=== PATIENT | female | born 1990 | race Two or more races ===

== ENCOUNTER 2020-03-30 12:17 | Emergency (ER) | payer MEDICAID ==
[~2020-03-30] VITALS: Ht 167.6 cm; Wt 81.6 kg
[2020-03-30] MEDS ORDERED: ACTIVATED CHARCOAL 25 GM/120 ML TUBE PO ONE (12:30)
--- NOTE | 2020-03-30 12:30 | NUR ---
CALLED POISON CONTROL. STATED TO DO THE FOLLOWING: "IF ABLE TO SWOLLOW GIVE 50 GRAMS OF CHARCOAL" 12 LEAD EKG IF EKG QRS GREATER THAN 120 GIVE BICARB BOLUS IF EKG QTC GREATER THAN 500 GIVE IV MAGNESEUM 1-2 GRAMS PERFORM LABS OF SERUM, MAGNESEUM, POTASSIAM, CALCIUM AND MAKE SURE THEY ARE ABOVE NORMAL RANGE. IV FLUIDS BENZODIAZEPAM FOR BEHAVIORAL. CHECK TYLENOL/ASPIRIN LEVELS AND RECHECK AFTER 4 HOURS. EKG AFTER 4 HOURS. LABS AFTER 4 HOURS.
[2020-03-30] MEDS ORDERED: CHARCOAL/SORBITOL SOLUTION 25 G/120 ML TUBE ONE (12:39)
--- NOTE | 2020-03-30 12:52 | NUR ---
[employer] AT BEDSIDE
--- NOTE | 2020-03-30 13:13 | NUR ---
pt rec'd to er via ems pt crying was found outside a hotel took white pills.stated wanted to kill herself but not now wants to live . boyfriend number [email or web address]
--- NOTE | 2020-03-30 13:18 | NUR ---
ekg done ua sent to lab labs drawn sent to lab. pt given charcoal
[2020-03-30 13:33] LABS: BILIRUBIN,URINE Negative (NEGATIVE); COLOR,URINE YELLOW (YELLOW); LEUKOCYTE ESTERASE ,URINE Moderate (NEGATIVE); NITRITE, URINE Positive (NEGATIVE); PROTEIN,URINE 30 mg/dl (NEGATIVE); UGLUCOSE Negative (NEGATIVE); UROBILINOGEN,URINE 0.2 EU/dL (0.2)
[2020-03-30 13:40] LABS: BACTERIA,URINE 3+ /HPF (None Seen); SQUAMOUS EPITHELIAL CELL,UR Few /HPF (None Seen); WBC,URINE 21-50 /HPF (0-3)
--- NOTE | 2020-03-30 13:56 | NUR ---
MARK [phone]
[2020-03-30 14:08] LABS: BASOPHILS # (AUTO) 0.2 /CMM (0.0-0.2); BASOPHILS % (AUTO) 1.9 % (0.0-2.0); HEMATOCRIT 39 % (33-45); HEMOGLOBIN 12.8 g/dL (11.5-14.8); LYMPHOCYTES # (AUTO) 0.4 /CMM (0.8-4.8); LYMPHOCYTES % (AUTO) 3.2 % (20.0-44.0); MEAN CORPUSCULAR HGB CONC 33 g/dl (31.0-36.0); MEAN CORPUSCULAR VOLUME 89 fL (82-100); MONOCYTES # (AUTO) 0.4 /CMM (0.1-1.30); MONOCYTES % (AUTO) 3.4 % (2.0-12.0); NEUTROPHILS # (AUTO) 10.8 /CMM (1.8-8.9); NEUTROPHILS % (AUTO) 90.5 % (43.0-81.0); PLATELET COUNT (AUTO) 350 /CMM (150-450); RED BLOOD CELL COUNT(AUTO) 4.35 MIL/uL (4.0-5.2)
[2020-03-30] MEDS ORDERED: IV NS 0.9% 1,000 ML IV ONE (16:00)
[2020-03-30] MEDS ORDERED: CEPHALEXIN MONOHYDRATE 500 MG CAPSULE PO ONE (16:35)
--- NOTE | 2020-03-30 16:53 | NUR ---
PATIENT WOULD LIKE TO SPEAK WITH BOYFRIEND. TRIED TO CONTACT MARK TO SPEAK TO HER. NO ANSWER. LEFT .
[2020-03-30] MEDS ORDERED: CEPHALEXIN MONOHYDRATE 500 MG CAPSULE PO SCH (17:00)
[2020-03-30] MEDS ORDERED: OLANZAPINE 10 MG VIAL IM ONE ×2 (17:13→17:30)
--- NOTE | 2020-03-30 17:14 | NUR ---
PATIENT GETS OUT OF BED AND GETS AGGRESSIVE TOWARDS STAFF. CODE MUSA ACTIVATED.
[2020-03-30] MEDS ORDERED: LORAZEPAM INJ 2 MG/ML VIAL ONE (17:21)
[2020-03-30] MEDS ORDERED: diphenhydrAMINE HCL 50 MG/ML VIAL IV ONE (17:30)
[2020-03-30] MEDS ORDERED: LORAZEPAM INJ 2 MG/ML VIAL IV ONE (17:30)
--- NOTE | 2020-03-30 17:41 | NUR ---
COVID SWAB SENT. PATIENT ASLEEP BUT EASILY AROUSABLE. NO DISTRESS NOTED. CONNECTED TO THE RIGGING UP MAN.
--- NOTE | 2020-03-30 17:48 | NUR ---
RECEIVED A CALL FROM POISON CONTROL W/ RECOMMENDATION FOR REPEAT EKG AND IF QRS >[address] FU.
[2020-03-30] MEDS ORDERED: diphenhydrAMINE HCL 50 MG/ML VIAL ONE (17:49)
--- NOTE | 2020-03-30 17:52 | NUR ---
CALLED [facility] FOR A REDRAW. AND EMT FOR REPEAT EKG.
[2020-03-30 18:03] LABS: CARBON DIOXIDE 23 mmol/L (21-32); CHLORIDE 98 mmol/L (98-107); POTASSIUM 4.8 mmol/L (3.5-5.1); SODIUM SERUM 136 mmol/L (136-145)
[2020-03-30 18:04] LABS: ALKALINE PHOSPHATASE 123 U/L (46-116); ASPARTATE AMINOTRANSFERASE 42 U/L (15-37); BILIRUBIN,TOTAL 0.6 mg/dL (0.2-1.0); CREATININE 0.5 mg/dL (0.6-1.3); GLUCOSE 128 mg/dL (74-106); UREA NITROGEN, BLOOD 14 mg/dL (7-18)
[2020-03-30 18:05] LABS: ALANINE AMINOTRANSFERASE 22 U/L (12-78); ALBUMIN 4.1 g/dL (3.4-5.0); TOTAL PROTEIN, SERUM 9.1 g/dL (6.4-8.2)
[2020-03-30 18:06] LABS: ACETAMINOPHEN 0 ug/ml (10-30); ALCOHOL, BLOOD < 3 mg/dL (0-0)
[2020-03-30 18:39] LABS: BASOPHILS % (AUTO) 0.3 % (0.0-2.0); HEMATOCRIT 35 % (33-45); HEMOGLOBIN 11.7 g/dL (11.5-14.8); LYMPHOCYTES # (AUTO) 1.3 /CMM (0.8-4.8); MEAN CORPUSCULAR HGB CONC 33 g/dl (31.0-36.0); MEAN CORPUSCULAR VOLUME 89 fL (82-100); MONOCYTES # (AUTO) 0.3 /CMM (0.1-1.30); MONOCYTES % (AUTO) 3.7 % (2.0-12.0); NEUTROPHILS # (AUTO) 6.7 /CMM (1.8-8.9); PLATELET COUNT (AUTO) 328 /CMM (150-450); RED BLOOD CELL COUNT(AUTO) 3.97 MIL/uL (4.0-5.2); WHITE BLOOD COUNT (AUTO) 8.4 K/uL (4.3-11.0)
--- NOTE | 2020-03-30 18:40 | NUR ---
patient in bed asleep, hooked to monitor. sitter at bedside for safety. will continue to monitor accordingly
[2020-03-30 18:53] LABS: CALCIUM, SERUM 8.8 mg/dL (8.5-10.1); CREATININE 0.6 mg/dL (0.6-1.3); MAGNESIUM 1.9 mg/dL (1.8-2.4); PHOSPHORUS 3.9 mg/dL (2.5-4.9); POTASSIUM 3.3 mmol/L (3.5-5.1)
--- NOTE | 2020-03-30 19:22 | NUR ---
REPORT GIVEN TO NARINDER HERNANDEZ FOR [facility]
[2020-03-30 19:27] LABS: MAGNESIUM 2.3 mg/dL (1.8-2.4); PHOSPHORUS 3.7 mg/dL (2.5-4.9)
--- NOTE | 2020-03-30 19:55 | NUR ---
PT REMAINS IN BED SLEEPING, CONNECTEDE TO MONITOR, SITTER AT BEDSIDE FOR SAFETY, WILL CONTINUE TO MONITOR
--- NOTE | 2020-03-30 21:27 | NUR ---
ASHLEY MARK [phone]
--- NOTE | 2020-03-31 01:57 | NUR ---
PT REMAINS IN [place], SLEEPIN NO APPARENT DISTRESS OF DISCOMOFORT, VSS WILL CONTINUE TO MONITOR
--- NOTE | 2020-03-31 05:40 | NUR ---
PT NOW AWAKE. AAOX4. DENIES SI/HI AT THIS TIME. DR. DALTON MADE AWARE. PER DR. DALTON, MEDICALLY CLEARED FOR DISCHARGE, WILL CALL MARK TO PLAN COORDINATOR PATIENT
[2020-03-31 06:15] VITALS: BP 115/60
--- NOTE | 2020-03-31 06:15 | NUR ---
Patient discharged to home in stable condition. Written and verbal after care instructions given. Patient verbalizes understanding of instruction.
== END 2020-03-31 06:15 | disposition home or self-care (01) ==
LOC: ER 12:20
DX: T65.92XA Toxic effect of unspecified substance, intentional self-harm, initial encounter (principal); Y92.89 Other specified places as the place of occurrence of the external cause; N39.0 Urinary tract infection, site not specified; B96.20 Unspecified Escherichia coli [E. coli] as the cause of diseases classified elsewhere; D72.829 Elevated white blood cell count, unspecified; Z20.822 Contact with and (suspected) exposure to COVID-19; F23 Brief psychotic disorder; F15.10 Other stimulant abuse, uncomplicated; R31.29 Other microscopic hematuria; Z59.0 Homelessness
CPT/HCPCS: 36415; 71045; 80048 ×2; 80076; 80299; 80307; 80320; 81001; 83735 ×2; 84100 ×2; 85025 ×2; 87077; 87086; 87186; 87426; 93005 ×3; 96361; 96372; 96374; 96375; 99285; C9803; J1200; J2060; J3490; J7030; G0480